=== PATIENT | female | born 1970 | race Caucasian/White ===

== ENCOUNTER 2016-06-09 13:57 | Emergency (ER) | payer OTHER ==
[~2016-06-09] VITALS: Ht 154.9 cm; Wt 67.1 kg
[~2016-06-09 13:57] MED LIST: PROM25TA15 PO
[2016-06-09 14:53] LABS: BASOPHILS % (AUTO) 0.3 % (0.0-2.0); EOSINOPHILS % (AUTO) 0.6 % (0.0-6.0); HEMATOCRIT 42 % (33-45); HEMOGLOBIN 14.2 g/dL (11.5-14.8); LYMPHOCYTES % (AUTO) 22.5 % (20.0-44.0); MEAN CORPUSCULAR HEMOGLOBIN 32 PG (26.0-33.0); MEAN CORPUSCULAR HGB CONC 34 g/dl (31.0-36.0); MEAN CORPUSCULAR VOLUME 95 fL (82-100); MONOCYTES % (AUTO) 3.9 % (2.0-12.0); NEUTROPHILS % (AUTO) 72.7 % (43.0-81.0); PLATELET COUNT (AUTO) 339 /CMM (150-450); RED BLOOD CELL COUNT(AUTO) 4.37 MIL/uL (4.0-5.2); WHITE BLOOD COUNT (AUTO) 6.9 K/uL (4.3-11.0)
[2016-06-09 14:54] LABS: DIFF TOTAL % 100 %; LYMPHOCYTES # (AUTO) 1.5 /CMM (0.8-4.8); MONOCYTES # (AUTO) 0.3 /CMM (0.1-1.30)
[2016-06-09 14:55] LABS: ADD UA MICROSCOPIC YES; KETONES,URINE NEGATIVE (NEGATIVE); LEUKOCYTE ESTERASE ,URINE NEGATIVE (NEGATIVE)
[2016-06-09 14:56] LABS: WBC,URINE 0-2 /HPF (0-3)
[2016-06-09 14:57] LABS: ADD URINE CULTURE NO; PREGNANCY TEST URINE QUAL NEGATIVE (NEGATIVE)
[2016-06-09 15:04] LABS: CALCIUM, SERUM 8.6 mg/dL (8.5-10.1); CREATININE 0.7 mg/dL (0.6-1.3); POTASSIUM 3.4 mmol/L (3.5-5.1)
[2016-06-09 15:09] LABS: BILIRUBIN,TOTAL 0.3 mg/dL (0.2-1.0); TOTAL PROTEIN, SERUM 7.7 g/dL (6.4-8.2)
[2016-06-09 15:11] LABS: INR 0.91 (0.87-1.13); PROTHROMBIN TIME 9.8 SECS (9.5-12.7)
[2016-06-09] MEDS ORDERED: KETOROLAC TROMETHAMINE INJ 30 MG/ML VIAL ONE (15:20)
[2016-06-09] MEDS ORDERED: KETOROLAC TROMETHAMINE INJ 30 MG/ML VIAL IV ONE (15:30)
[2016-06-09] MEDS ORDERED: POTASSIUM CHLORIDE 20 MEQ TAB.PRT.SR PO ONE ×2 (15:56→16:00)
[2016-06-09 19:06] VITALS: BP 132/87
== END 2016-06-09 19:08 | disposition home or self-care (01) ==
LOC: ER 13:59
DX: R07.9 Chest pain, unspecified (principal); E87.6 Hypokalemia; E03.9 Hypothyroidism, unspecified; Z88.8 Allergy status to other drugs, medicaments and biological substances
CPT/HCPCS: 36415; 71010; 80053; 81001; 83690; 84443; 84484 ×2; 84703; 85025; 85378; 85730; 93005; 96374; 99285; A4606; J1885; Z7610; 81000-TC

== ENCOUNTER 2017-05-15 21:24 | Emergency (ER) | payer OTHER ==
[~2017-05-15] VITALS: Ht 154.9 cm; Wt 68.0 kg
[2017-05-15 21:30] VITALS: BP 136/79
[2017-05-15] MEDS ORDERED: PSEUDOEPHEDRINE HCL 30 MG TABLET ONE (23:06)
[2017-05-15] MEDS ORDERED: AMOXICILLIN TRIHYDRATE 250 MG CAPSULE ONE (23:08)
[2017-05-15] MEDS ORDERED: PSEUDOEPHEDRINE HCL 30 MG TABLET PO ONE (23:30)
[2017-05-15] MEDS ORDERED: AMOXICILLIN TRIHYDRATE 250 MG CAPSULE PO ONE (23:30)
== END 2017-05-15 23:51 | disposition home or self-care (01) ==
LOC: ER 21:28
DX: J02.8 Acute pharyngitis due to other specified organisms (principal); B97.89 Other viral agents as the cause of diseases classified elsewhere; J32.9 Chronic sinusitis, unspecified; Z88.8 Allergy status to other drugs, medicaments and biological substances
CPT/HCPCS: 99283; A4606; Z7610

== ENCOUNTER 2019-03-08 09:06 | Emergency (ER) | payer OTHER ==
[~2019-03-08] VITALS: Ht 157.5 cm; Wt 64.0 kg
--- NOTE | 2019-03-08 09:08 | NUR ---
CAME IN FOR ON & OFF HEADACHE AND LEG PAIN X 3 DAYS, TO ER BED 7, HOOKED TO MONITOR, CHANGED TO HOSPITAL GOWN, PROVIDED W WARM BLANKET, PATIENT AOx4 , BREATHING EVEN AND UNLABORED, AWAITING MD SUÁREZ.
--- NOTE | 2019-03-08 09:19 | NUR ---
DR LLANOS AT BEDSIDE
[2019-03-08 09:35] LABS: BASOPHILS % (AUTO) 0.4 % (0.0-2.0); EOSINOPHILS % (AUTO) 1.8 % (0.0-6.0); HEMATOCRIT 42 % (33-45); HEMOGLOBIN 14.3 g/dL (11.5-14.8); LYMPHOCYTES # (AUTO) 1.5 /CMM (0.8-4.8); LYMPHOCYTES % (AUTO) 25.1 % (20.0-44.0); MEAN CORPUSCULAR HGB CONC 35 g/dl (31.0-36.0); MEAN CORPUSCULAR VOLUME 95 fL (82-100); MONOCYTES # (AUTO) 0.4 /CMM (0.1-1.30); MONOCYTES % (AUTO) 5.9 % (2.0-12.0); NEUTROPHILS % (AUTO) 66.8 % (43.0-81.0); PLATELET COUNT (AUTO) 430 /CMM (150-450); RED BLOOD CELL COUNT(AUTO) 4.36 MIL/uL (4.0-5.2)
[2019-03-08] MEDS ORDERED: METOCLOPRAMIDE HCL 10 MG/2 ML VIAL ONE (09:36)
[2019-03-08] MEDS ORDERED: IBUPROFEN 600 MG TABLET PO ONE (09:37)
[2019-03-08] MEDS ORDERED: ACETAMINOPHEN ES 500 MG TABLET ONE (09:37)
[2019-03-08 09:45] LABS: CALCIUM, SERUM 9.2 mg/dL (8.5-10.1); CREATININE 0.7 mg/dL (0.6-1.3); POTASSIUM 4.2 mmol/L (3.5-5.1)
[2019-03-08] MEDS: IV NS 0.9% 1,000 ML BAG IV ONE (09:49)
[2019-03-08] MEDS: METOCLOPRAMIDE HCL 10 MG/2 ML VIAL IV ONE (09:49)
[2019-03-08] MEDS: IBUPROFEN 600 MG TABLET PO ONE (09:50)
[2019-03-08] MEDS: ACETAMINOPHEN ES 500 MG TABLET PO ONE (09:50)
[2019-03-08 09:51] LABS: ALBUMIN 3.7 g/dL (3.4-5.0); BILIRUBIN,DIRECT 0.1 mg/dL (0.0-0.2); BILIRUBIN,TOTAL 0.5 mg/dL (0.2-1.0); TOTAL PROTEIN, SERUM 7.7 g/dL (6.4-8.2)
[2019-03-08 10:47] LABS: APPEARANCE,URINE Clear (CLEAR); BILIRUBIN,URINE Negative (NEGATIVE); BLOOD, URINE Moderate Ery/uL (NEGATIVE); COLOR,URINE Yellow (YELLOW); KETONES,URINE Negative (NEGATIVE); LEUKOCYTE ESTERASE ,URINE Negative (NEGATIVE); NITRITE, URINE Negative (NEGATIVE); PH,URINE 6.5 (5.0-8.0); PROTEIN,URINE Negative (NEGATIVE); UGLUCOSE Negative (NEGATIVE); UROBILINOGEN,URINE 0.2 EU/dL (0.2)
[2019-03-08 10:50] LABS: BACTERIA,URINE Few /HPF (None Seen); SQUAMOUS EPITHELIAL CELL,UR Few /HPF (None Seen)
--- NOTE | 2019-03-08 11:12 | NUR ---
IV removed. Catheter intact and site benign. Pressure and 4x4 applied to site. No bleeding noted.Patient discharged to home in stable condition. Written and verbal after care instructions given. Patient verbalizes understanding of instruction.
[2019-03-08 11:13] VITALS: BP 121/71
== END 2019-03-08 11:15 | disposition home or self-care (01) ==
LOC: ER 09:08
DX: R51 Headache (principal); B34.9 Viral infection, unspecified; E03.9 Hypothyroidism, unspecified; Z98.890 Other specified postprocedural states; Z88.8 Allergy status to other drugs, medicaments and biological substances
CPT/HCPCS: 36415; 80048; 80076; 81001; 85025; 96365; 99283; A4216; J2765; J7030; 81000-TC

== ENCOUNTER 2019-06-07 19:25 | Emergency (ER) | payer OTHER ==
[~2019-06-07] VITALS: Ht 154.9 cm; Wt 67.1 kg
--- NOTE | 2019-06-07 20:50 | NUR ---
bibs for c/o syncopal episode x 3 and N/V/D x 1 day. pt ambulatory to the bed, a, ox3. placed on a monitor . VSS. will cont to monitor ,
[2019-06-07] MEDS ORDERED: MORPHINE SULFATE INJ 2 MG/ML DISP.SYRIN IV ONE (21:00)
[2019-06-07] MEDS ORDERED: ONDANSETRON HCL/PF 4 MG/2 ML VIAL IVP ONE (21:00)
[2019-06-07] MEDS ORDERED: IV NS 0.9% 1,000 ML BAG IV ONE ×2 (21:00→22:30)
[2019-06-07] MEDS ORDERED: MORPHINE SULFATE INJ 4 MG/ML DISP.SYRIN ONE (21:04)
[2019-06-07] MEDS ORDERED: ONDANSETRON HCL/PF 4 MG/2 ML VIAL ONE (21:04)
[2019-06-07 21:14] LABS: BASOPHILS % (AUTO) 0.2 % (0.0-2.0); EOSINOPHILS % (AUTO) 0.5 % (0.0-6.0); HEMATOCRIT 41 % (33-45); HEMOGLOBIN 14.2 g/dL (11.5-14.8); LYMPHOCYTES # (AUTO) 0.5 /CMM (0.8-4.8); LYMPHOCYTES % (AUTO) 5.6 % (20.0-44.0); MEAN CORPUSCULAR HGB CONC 35 g/dl (31.0-36.0); MEAN CORPUSCULAR VOLUME 93 fL (82-100); MONOCYTES # (AUTO) 0.3 /CMM (0.1-1.30); MONOCYTES % (AUTO) 4.1 % (2.0-12.0); NEUTROPHILS # (AUTO) 7.6 /CMM (1.8-8.9); NEUTROPHILS % (AUTO) 89.6 % (43.0-81.0); PLATELET COUNT (AUTO) 277 /CMM (150-450); WHITE BLOOD COUNT (AUTO) 8.5 K/uL (4.3-11.0)
[2019-06-07 21:21] LABS: CALCIUM, SERUM 8.7 mg/dL (8.5-10.1); CARBON DIOXIDE 28 mmol/L (21-32); CHLORIDE 101 mmol/L (98-107); CREATININE 0.8 mg/dL (0.6-1.3); GLUCOSE 107 mg/dL (74-106); POTASSIUM 4.2 mmol/L (3.5-5.1); SODIUM SERUM 135 mmol/L (136-145); UREA NITROGEN, BLOOD 18 mg/dL (7-18)
[2019-06-07 21:26] LABS: ALANINE AMINOTRANSFERASE 31 U/L (12-78); ALBUMIN 4.1 g/dL (3.4-5.0); ALKALINE PHOSPHATASE 71 U/L (46-116); ASPARTATE AMINOTRANSFERASE 21 U/L (15-37); BILIRUBIN,DIRECT 0.1 mg/dL (0.0-0.2); BILIRUBIN,TOTAL 0.9 mg/dL (0.2-1.0); TOTAL PROTEIN, SERUM 7.3 g/dL (6.4-8.2)
[2019-06-07 21:31] LABS: APPEARANCE,URINE Clear (CLEAR); BILIRUBIN,URINE Negative (NEGATIVE); BLOOD, URINE Negative Ery/uL (NEGATIVE); COLOR,URINE Yellow (YELLOW); KETONES,URINE Negative (NEGATIVE); LEUKOCYTE ESTERASE ,URINE Negative (NEGATIVE); NITRITE, URINE Negative (NEGATIVE); PROTEIN,URINE Trace mg/dl (NEGATIVE); UGLUCOSE Negative (NEGATIVE); UROBILINOGEN,URINE 0.2 EU/dL (0.2)
[2019-06-07 21:47] LABS: BACTERIA,URINE Few /HPF (None Seen); HYALINE CASTS, URINE Few /LPF (None Seen); SQUAMOUS EPITHELIAL CELL,UR Few /HPF (None Seen)
[2019-06-07 21:48] LABS: RBC,URINE 0-2 /HPF (0-2); WBC,URINE 0-2 /HPF (0-3)
--- NOTE | 2019-06-07 21:54 | NUR ---
pt left for CT
--- NOTE | 2019-06-07 23:46 | NUR ---
IV removed. Catheter intact and site benign. Pressure and 4x4 applied to site. No bleeding noted.Patient discharged to home in stable condition. RX AND Written and verbal after care instructions given. Patient verbalizes understanding of instruction.
[2019-06-07 23:47] VITALS: BP 96/59
== END 2019-06-07 23:52 | disposition home or self-care (01) ==
LOC: ER 19:37
DX: R10.84 Generalized abdominal pain (principal); R55 Syncope and collapse; E03.9 Hypothyroidism, unspecified; Z98.890 Other specified postprocedural states; Z88.8 Allergy status to other drugs, medicaments and biological substances; Z79.899 Other long term (current) drug therapy
CPT/HCPCS: 36415; 70450; 71045; 74176; 80048; 80076; 81001; 84484; 84703; 85025; 93005; 96361; 96374; 96375; 99285; J2270; J2405; J7030 ×2; 81000-TC

== ENCOUNTER 2020-07-22 15:27 | Emergency (ER) | payer OTHER ==
[~2020-07-22] VITALS: Ht 154.9 cm; Wt 71.2 kg
--- NOTE | 2020-07-22 15:40 | NUR ---
c/o dizziness, nausea, and headache since yesterday. Patient a/ox4. breathing even and unlabored, no sob noted, needs attended. Kept comfortable.
[2020-07-22 16:13] LABS: BASOPHILS % (AUTO) 0.8 % (0.0-2.0); EOSINOPHILS % (AUTO) 4.1 % (0.0-6.0); HEMATOCRIT 39 % (33-45); HEMOGLOBIN 13.6 g/dL (11.5-14.8); LYMPHOCYTES # (AUTO) 1.9 /CMM (0.8-4.8); LYMPHOCYTES % (AUTO) 38.2 % (20.0-44.0); MEAN CORPUSCULAR HGB CONC 35 g/dl (31.0-36.0); MEAN CORPUSCULAR VOLUME 95 fL (82-100); MONOCYTES # (AUTO) 0.4 /CMM (0.1-1.30); MONOCYTES % (AUTO) 7.6 % (2.0-12.0); NEUTROPHILS # (AUTO) 2.5 /CMM (1.8-8.9); NEUTROPHILS % (AUTO) 49.3 % (43.0-81.0); PLATELET COUNT (AUTO) 346 /CMM (150-450); RED BLOOD CELL COUNT(AUTO) 4.14 MIL/uL (4.0-5.2)
[2020-07-22 16:27] LABS: CALCIUM, SERUM 8.7 mg/dL (8.5-10.1); CREATININE 0.9 mg/dL (0.6-1.3); POTASSIUM 3.5 mmol/L (3.5-5.1)
[2020-07-22] MEDS ORDERED: MECL-159 PO (16:51)
[2020-07-22] MEDS ORDERED: MECLIZINE HCL 25 MG TABLET PO ONE (17:00)
[2020-07-22] MEDS ORDERED: MECLIZINE HCL 25 MG TABLET ONE (17:04)
[2020-07-22 17:11] VITALS: BP 146/87
--- NOTE | 2020-07-22 17:11 | NUR ---
Patient discharged to home in stable condition. Written and verbal after care instructions given. Patient verbalizes understanding of instruction.
== END 2020-07-22 17:12 | disposition home or self-care (01) ==
LOC: ER 15:27
DX: R42 Dizziness and giddiness (principal); E03.9 Hypothyroidism, unspecified; Z98.890 Other specified postprocedural states; Z88.8 Allergy status to other drugs, medicaments and biological substances; Z79.899 Other long term (current) drug therapy
CPT/HCPCS: 36415; 80048; 84702; 85025; 93005; 99284; J8597

== ENCOUNTER 2021-01-10 18:15 | Emergency (ER) | payer OTHER ==
[~2021-01-10] VITALS: Ht 165.1 cm; Wt 63.5 kg
[~2021-01-10 18:15] MED LIST changes: +MECL-159 PO
[2021-01-10] MEDS ORDERED: ACETAMINOPHEN ES 500 MG TABLET PO ONE (18:30)
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
[2021-01-10] MEDS ORDERED: ACETAMINOPHEN ES 500 MG TABLET ONE (18:36)
--- NOTE | 2021-01-10 18:38 | NUR ---
THE PATIENT IS TAKEN TO CT
--- NOTE | 2021-01-10 18:58 | NUR ---
X-RAY TECH IS AT THE BEDSIDE
--- NOTE | 2021-01-10 18:58 | NUR ---
THE PATIENT IS BACK FROM CT
--- NOTE | 2021-01-10 19:14 | NUR ---
REPORT GIVEN TO NURSE HAGER FOR ANDREA
--- NOTE | 2021-01-10 20:45 | NUR ---
TELEPHONE TO RADIOLOGY, REQUESTED FOR COPY OF IMAGING.
--- NOTE | 2021-01-10 20:59 | NUR ---
Patient discharged to home in stable condition. Written and verbal after care instructions given. Patient verbalizes understanding of instruction. patient ambulatory with a steady gait
[2021-01-10 21:00] VITALS: BP 114/74
== END 2021-01-10 21:00 | disposition home or self-care (01) ==
LOC: ER 18:24
DX: R51.9 Headache, unspecified (principal); M54.50 Low back pain, unspecified; E03.9 Hypothyroidism, unspecified; Z98.890 Other specified postprocedural states; Z88.8 Allergy status to other drugs, medicaments and biological substances; Z79.899 Other long term (current) drug therapy; V49.49XA Driver injured in collision with other motor vehicles in traffic accident, initial encounter; Y93.89 Activity, other specified; Y92.413 State road as the place of occurrence of the external cause; Y99.8 Other external cause status
CPT/HCPCS: 70450-TC; 71045-TC; 72131-TC

== ENCOUNTER 2021-03-31 10:57 | Emergency (ER) | payer OTHER ==
[~2021-03-31] VITALS: Ht 157.5 cm; Wt 62.6 kg
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
[2021-03-31] MEDS ORDERED: AZIT1PAC9 PO (11:13)
--- NOTE | 2021-03-31 12:51 | NUR ---
Patient discharged to home in stable condition. Written and verbal after care instructions given. Patient verbalizes understanding of instruction.
[2021-03-31 14:23] VITALS: BP 126/77
== END 2021-03-31 13:01 | disposition home or self-care (01) ==
LOC: ER 11:01
DX: H66.92 Otitis media, unspecified, left ear (principal); E03.9 Hypothyroidism, unspecified; Z98.890 Other specified postprocedural states; Z88.8 Allergy status to other drugs, medicaments and biological substances

== ENCOUNTER 2023-04-21 08:40 | Emergency (ER) | payer OTHER ==
[~2023-04-21] VITALS: Ht 154.9 cm; Wt 66.7 kg
[~2023-04-21 08:40] MED LIST changes: +AZIT1PAC9 PO
[2023-04-21 08:45] VITALS: BP 128/78; TEMP 98.2
[2023-04-21] MEDS ORDERED: AMOX-430 PO (09:40)
[2023-04-21] MEDS ORDERED: IBUP-1955 PO (09:40)
[2023-04-21 10:20] VITALS: O2SAT 98
== END 2023-04-21 11:32 | disposition home or self-care (01) ==
LOC: ER 08:44
DX: J06.9 Acute upper respiratory infection, unspecified (principal); K00.7 Teething syndrome; R22.0 Localized swelling, mass and lump, head; H92.03 Otalgia, bilateral; Z88.8 Allergy status to other drugs, medicaments and biological substances

== ENCOUNTER 2024-11-19 07:37 | Emergency (ER) | payer OTHER ==
[~2024-11-19] VITALS: Ht 154.9 cm; Wt 67.1 kg
[~2024-11-19 07:37] MED LIST changes: +AMOX-430 PO; +IBUP-1955 PO
[2024-11-19 08:01] VITALS: BP 124/82; TEMP 98.4
[2024-11-19] MEDS ORDERED: PRED50TA PO (08:14)
[2024-11-19] MEDS ORDERED: KETO10TA2 PO (08:14)
[2024-11-19] MEDS ORDERED: CIPR7.5D9 EACH EAR (08:14)
[2024-11-19] MEDS ORDERED: ACYC-108 PO (08:14)
[2024-11-19 08:25] VITALS: O2SAT 98
== END 2024-11-19 08:25 | disposition home or self-care (01) ==
LOC: ER 07:37
DX: H92.02 Otalgia, left ear (principal); B02.21 Postherpetic geniculate ganglionitis; Z79.52 Long term (current) use of systemic steroids; Z79.899 Other long term (current) drug therapy